=== PATIENT | female | born 1970 | race Caucasian/White ===

== ENCOUNTER 2025-10-18 17:31 | Emergency (ER) | payer MEDICARE | END 2025-10-18 18:05 | disposition home or self-care (01) | LOC: VM.ED 17:31 | DX: J45.40 Moderate persistent asthma, uncomplicated (principal); Z88.0 Allergy status to penicillin; Z88.5 Allergy status to narcotic agent; Z88.2 Allergy status to sulfonamides; Z88.8 Allergy status to other drugs, medicaments and biological substances; Z79.899 Other long term (current) drug therapy | CPT/HCPCS: 99283; 99284; A9270-GY ==